=== PATIENT | male | born 1970 | race Caucasian/White ===

== ENCOUNTER 2017-08-25 22:11 | Emergency (ER) | payer MEDICAID, OTHER, SELFPAY ==
[2017-08-25 23:10] LABS: MEAN CORPUSCULAR HEMOGLOBIN 36.7 pg (27.0-33.0); MEAN CORPUSCULAR HGB CONC 36.5 g/dl (32.0-36.5); MEAN CORPUSCULAR VOLUME 100.8 fl (80.0-96.0); PLATELET COUNT, AUTOMATED 228 10^3/uL (150-450); WHITE BLOOD COUNT 6.5 10^3/uL (4.0-10.0)
[2017-08-25] MEDS ORDERED: diphenhydrAMINE INJ 50MG/ML VIAL (J1200) IM STA (23:32)
[2017-08-25] MEDS ORDERED: HALOPERIDOL 5 MG/ML VIAL (J1630) IM STA (23:32)
[2017-08-25 23:42] LABS: ALBUMIN 3.7 GM/DL (3.2-5.2); ALKALINE PHOSPHATASE 68 U/L (45-117); ALT/SGPT 26 U/L (12-78); ANION GAP 12 MEQ/L (8-16); AST/SGOT 25 U/L (7-37); BILIRUBIN,DIRECT 0.2 MG/DL (0.0-0.2); BILIRUBIN,TOTAL 0.7 MG/DL (0.2-1.0); BLOOD UREA NITROGEN 13 MG/DL (7-18); CALCIUM LEVEL 8.8 MG/DL (8.5-10.1); CARBON DIOXIDE LEVEL 23 MEQ/L (21-32); CHLORIDE LEVEL 109 MEQ/L (98-107); CREATININE FOR GFR 0.55 MG/DL (0.70-1.30); GLOMERULAR FILTRATION RATE > 60.0 (>60); GLUCOSE, FASTING 116 MG/DL (70-105); POTASSIUM SERUM 3.4 MEQ/L (3.5-5.1); SODIUM LEVEL 144 MEQ/L (136-145); TOTAL PROTEIN 7.4 GM/DL (6.4-8.2)
[2017-08-25 23:57] LABS: METHADONE URINE NEGATIVE (NEGATIVE)
[2017-08-26] MEDS ORDERED: OLANZapine INTRAMUSCULAR 10 MG VIAL (S0166) IM ONE (02:45)
--- NOTE | 2017-08-26 09:19 | REP ---
Left femur two views: Study includes the mid and distal femur. There is no fracture or dislocation. Mineralization is normal. No calcifications or foreign bodies. Impression: Negative left femur. Signed by Osmany Lea MD 08/26/2017 09:10 A
--- NOTE | 2017-08-26 09:21 | REP ---
Left hip including proximal femur two views: There are no comparisons. There are lucencies superiorly in the femoral head and there is flattening and deformity of the humeral head superiorly. 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 Consider MRI for confirmation. Signed by Osmany Lea MD 08/26/2017 09:11 A
--- NOTE | 2017-08-26 09:21 | REP ---
Left tibia-fibula four views : There is no fracture or dislocation. Mineralization and joint spaces are normal. There are no calcifications or foreign bodies. Impression: Negative left tibia-fibula . Signed by Osmany Lea MD 08/26/2017 09:12 A
--- NOTE | 2017-08-26 09:22 | REP ---
AP pelvis: There are no pelvic fractures. There are lucencies superiorly in the left femoral head and flattening of the left femoral head superiorly compatible with chronic aseptic necrosis and compression fracture of the femoral head. There are no calcifications. Study otherwise unremarkable. Signed by Osmany Lea MD 08/26/2017 09:13 A
--- NOTE | 2017-08-26 09:23 | REP ---
Left foot four views : There is no fracture or dislocation. Mineralization and joint spaces are normal. There are no calcifications or foreign bodies. Impression: Negative left foot . Signed by Osmany Lea MD 08/26/2017 09:14 A
[2017-08-26] MEDS ORDERED: ALPR2TAB3 PO (12:36)
[2017-08-26] MEDS ORDERED: ALPRAZolam 0.25 MG TAB PO ONE (12:45)
[2017-08-26] MEDS ORDERED: WHEEMIS3 XX (14:07)
[2017-08-26] MEDS ORDERED: [UNRECOGNIZED DRUG - CODE] XX (14:07)
[2017-08-26 15:47] VITALS: BP 161/89
== END 2017-08-26 15:54 | disposition home or self-care (01) ==
LOC: EDBD 22:11 → M ED 22:11
DX: F10.129 Alcohol abuse with intoxication, unspecified (principal); F69 Unspecified disorder of adult personality and behavior; Z79.899 Other long term (current) drug therapy
CPT/HCPCS: 72170; 73502; 73552; 73590; 73630; 80048; 80076; 80307; 80320; 80329; 84443; 85027; 96372; 99284; J1200; J1630